=== PATIENT | female | born 2000 | race Two or more races ===

== ENCOUNTER 2023-07-26 13:41 | Emergency (ER) | payer OTHER ==
[~2023-07-26] VITALS: Ht 157.5 cm; Wt 49.4 kg
[2023-07-26] MEDS ORDERED: FOLIC ACID20 MG PO (15:28)
[2023-07-26] MEDS ORDERED: PRENA1 TRUE CO1 EACH PO (15:28)
[2023-07-26 17:21] LABS: HEMATOCRIT 34.2 % (36.0-45.00); HEMOGLOBIN 11.7 g/dL (12.0-15.00); MEAN CELL VOLUME 89.7 fL (80.00-100.00); MEAN CORPUSCULAR HEMOGLOBIN 30.8 pg (27.00-32.0); MEAN CORPUSCULAR HGB CONC 34.3 g/dl (32.0-36.0); PLATELET COUNT 295 K/uL (150-450); RED BLOOD COUNT 3.81 M/uL (4.00-6.00); RED CELL DISTRIBUTION WIDTH 13.4 % (11.5-14.5)
[2023-07-26 17:31] LABS: PH,URINE 5.5 (5.0-8.0); URINE APPEARANCE Clear; URINE BILIRRUBIN Negative (NEGATIVE); URINE BLOOD Negative; URINE COLOR Yellow; URINE GLUCOSE Negative (NEGATIVE); URINE LEUKOCYTE Negative; URINE NITRATE Negative; URINE PROTEIN Negative (NEGATIVE); URINE UROBILINOGEN 0.2 E.U./dl
[2023-07-26 17:32] LABS: URINE BACTERIA 26.4 uL (0.0-1933); URINE EPITHELIAL CELLS 10.8 uL (0.0-38.8); URINE RBC 5.7 uL (0.0-20.8)
[2023-07-26 17:39] LABS: INR 1.08; PARTIAL THROMBOPLASTIN TIME 33.8 SECONDS (22.0-34.0); PROTHROMBIN TIME 11.3 SECONDS (9.0-11.5)
[2023-07-26 18:05] LABS: CALCIUM 9.3 mg/dL (8.5-10.1); CREATININE SERUM 0.56 mg/dL (0.55-1.02); POTASSIUM 3.97 mEq/L (3.5-5.1)
[2023-07-26] MEDS ORDERED: ONDANSETRON HCL4 MG PO ×2 (22:24→22:25)
[2023-07-26] MEDS ORDERED: ONDANSETRON HCL4 MG SL (22:27)
== END 2023-07-26 22:45 | disposition home or self-care (01) ==
LOC: ER 13:42
PROVIDERS: Nurse Practitioner Family
DX: O98.819 Other maternal infectious and parasitic diseases complicating pregnancy, unspecified trimester (principal); B37.31 Acute candidiasis of vulva and vagina; R10.2 Pelvic and perineal pain; R53.81 Other malaise; Z3A.08 8 weeks gestation of pregnancy; Z88.0 Allergy status to penicillin; Z88.6 Allergy status to analgesic agent

== ENCOUNTER 2023-09-02 10:23 | Outpatient (CLI) | payer OTHER ==
[~2023-09-02 10:23] MED LIST: FOLIC ACID20 MG PO; ONDANSETRON HCL4 MG PO; ONDANSETRON HCL4 MG SL; PRENA1 TRUE CO1 EACH PO
== END 2023-09-02 10:26 | disposition home or self-care (01) ==
LOC: PRENATAL 10:23
PROVIDERS: ATTEND Obstetrics & Gynecology Maternal & Fetal Medicine
DX: O36.80X0 Pregnancy with inconclusive fetal viability, not applicable or unspecified (principal); O26.849 Uterine size-date discrepancy, unspecified trimester; Z3A.15 15 weeks gestation of pregnancy

== ENCOUNTER → 2023-10-07 16:15 | Outpatient (CLI) | payer OTHER | END | disposition home or self-care (01) | LOC: PRENATAL 16:15 | PROVIDERS: ATTEND Obstetrics & Gynecology Maternal & Fetal Medicine | DX: O35.3XX0 Maternal care for (suspected) damage to fetus from viral disease in mother, not applicable or unspecified (principal); O44.00 Complete placenta previa NOS or without hemorrhage, unspecified trimester; Z3A.20 20 weeks gestation of pregnancy ==

== ENCOUNTER → 2023-12-29 | Outpatient (CLI) | payer OTHER | END | disposition home or self-care (01) | LOC: PRENATAL 13:31 | PROVIDERS: ATTEND Obstetrics & Gynecology Maternal & Fetal Medicine | DX: O26.849 Uterine size-date discrepancy, unspecified trimester (principal); O36.8199 Decreased fetal movements, unspecified trimester, other fetus; Z3A.31 31 weeks gestation of pregnancy ==

== ENCOUNTER 2024-02-10 07:18 | Outpatient (CLI) | payer OTHER ==
[2024-02-10 06:20] VITALS: BP 116/70
[2024-02-10] MEDS ORDERED: RINGERS SOLUTION,LACTATED 1,000 ML IV SCH (08:30)
[2024-02-10 08:41] LABS: HEMATOCRIT 33.1 % (36.0-45.00); HEMOGLOBIN 11.3 g/dL (12.0-15.00); MEAN CELL VOLUME 98.5 fL (80.00-100.00); MEAN CORPUSCULAR HEMOGLOBIN 33.7 pg (27.00-32.0); MEAN CORPUSCULAR HGB CONC 34.2 g/dl (32.0-36.0); PLATELET COUNT 226 K/uL (150-450); RED BLOOD COUNT 3.36 M/uL (4.00-6.00)
[2024-02-10 08:59] LABS: URINE APPEARANCE Cloudy; URINE BILIRRUBIN Negative (NEGATIVE); URINE BLOOD Negative; URINE COLOR Yellow; URINE GLUCOSE Negative (NEGATIVE); URINE KETONE Trace (NEGATIVE); URINE LEUKOCYTE Moderate; URINE NITRATE Negative; URINE PROTEIN 30 (NEGATIVE); URINE UROBILINOGEN 0.2 E.U./dl
[2024-02-10 09:03] LABS: URINE BACTERIA 9311.1 uL (0.0-1933); URINE CAST 3.96 uL (0.0-1.40); URINE EPITHELIAL CELLS 44.8 uL (0.0-38.8); URINE RBC 32.3 uL (0.0-20.8)
[2024-02-10] MEDS ORDERED: CLEOCIN PH900 MG/6 M PO (09:17)
[2024-02-10 09:33] LABS: URINE CRYSTALS FEW /HPF; URINE YEAST FEW /hpf
== END 2024-02-10 10:16 | disposition home or self-care (01) ==
LOC: OBS/DEL 07:18
PROVIDERS: ATTEND Obstetrics & Gynecology
DX: O26.893 Other specified pregnancy related conditions, third trimester (principal); Z3A.38 38 weeks gestation of pregnancy

== ENCOUNTER 2024-02-21 05:19 | Inpatient (IN) | payer OTHER ==
[~2024-02-21] VITALS: Ht 152.4 cm; Wt 68.5 kg
[~2024-02-21 05:19] MED LIST changes: +CLEOCIN PH900 MG/6 M PO
[2024-02-21] MEDS ORDERED: RINGERS SOLUTION,LACTATED 1,000 ML IV SCH (05:30)
[2024-02-21] MEDS ORDERED: CEFAZOLIN SODIUM 1,000 MG VIAL IV ONE (05:45)
[2024-02-21 06:19] LABS: HEMATOCRIT 35.5 % (36.0-45.00); HEMOGLOBIN 12.4 g/dL (12.0-15.00); MEAN CELL VOLUME 97.8 fL (80.00-100.00); MEAN CORPUSCULAR HEMOGLOBIN 34.3 pg (27.00-32.0); MEAN CORPUSCULAR HGB CONC 35.1 g/dl (32.0-36.0); PLATELET COUNT 242 K/uL (150-450); RED BLOOD COUNT 3.63 M/uL (4.00-6.00); RED CELL DISTRIBUTION WIDTH 13.9 % (11.5-14.5)
[2024-02-21 06:22] LABS: PH,URINE 6.5 (5.0-8.0); URINE APPEARANCE Clear; URINE BILIRRUBIN Negative (NEGATIVE); URINE BLOOD Negative; URINE COLOR Yellow; URINE GLUCOSE Negative (NEGATIVE); URINE KETONE Negative (NEGATIVE); URINE LEUKOCYTE Small; URINE NITRATE Negative; URINE PROTEIN 30 (NEGATIVE); URINE UROBILINOGEN 0.2 E.U./dl
[2024-02-21 06:26] LABS: URINE EPITHELIAL CELLS 28.9 uL (0.0-38.8); URINE RBC 28.8 uL (0.0-20.8); URINE WBC 48.8 uL (0.0-23.2)
[2024-02-21 06:40] LABS: ALBUMIN 2.9 gm/dL (3.4-5.0); BILIRUBIN TOTAL 0.59 mg/dL (0.3-1.2); CALCIUM 9.2 mg/dL (8.5-10.1); CREATININE SERUM 0.53 mg/dL (0.55-1.02); GFR 141.72; GLOBULINA 3.5 G/DL (2.4-3.5); POTASSIUM 3.9 mEq/L (3.5-5.1); TOTAL PROTEIN 6.4 gm/dL (6.4-8.2)
[2024-02-21 06:44] LABS: INR 0.98; PARTIAL THROMBOPLASTIN TIME 30.1 SECONDS (22.0-34.0); PROTHROMBIN TIME 10.7 SECONDS (9.0-11.5)
[2024-02-21] MEDS ORDERED: MISOPROSTOL 25 MCG/4 ML GEL.W.APPL VAG STA (07:28)
[2024-02-21] MEDS ORDERED: MISOPROSTOL 25 MCG/4 ML GEL.W.APPL ONE (07:33)
[2024-02-21] MEDS ORDERED: OXYTOCIN 20 UNITS/500ML RL PIGGYBAG IV ONE (07:40)
[2024-02-21] MEDS ORDERED: OXYTOCIN 500 ML IV SCH (08:15)
[2024-02-21] MEDS ORDERED: MORPHINE SULFATE 4 MG/ML VIAL IV STA (12:44)
[2024-02-21] MEDS ORDERED: CEFAZOLIN SODIUM 1,000 MG VIAL IV SCH (13:00)
[2024-02-21] MEDS ORDERED: ERYTHROMYCIN BASE 1 GM TUBE OP ONE (14:50)
[2024-02-21] MEDS ORDERED: LIDOCAINE HCL 1% 10ML VIAL ONE (14:51)
[2024-02-21] MEDS ORDERED: CHLORHEXIDINE GLUCONATE 120 ML BOTTLE TOP ONE (14:51)
[2024-02-21] MEDS ORDERED: OXYTOCIN 10 UNITS/ML VIAL ONE (14:51)
[2024-02-21] MEDS ORDERED: OXYTOCIN 20 UNITS/1000ML RL PIGGYBAG IV ONE (14:51)
[2024-02-21] MEDS ORDERED: OXYTOCIN 1,000 ML IV SCH (18:15)
[2024-02-21] MEDS ORDERED: OXYTOCIN 10 UNITS/ML VIAL IM STA (18:15)
[2024-02-21] MEDS ORDERED: CHLORHEXIDINE GLUCONATE 120 ML BOTTLE TOP SCH (18:15)
[2024-02-21] MEDS ORDERED: ERYTHROMYCIN BASE 1 GM TUBE OP SCH (18:15)
[2024-02-21] MEDS ORDERED: LIDOCAINE HCL 1% 10ML VIAL PERCUT ONE (18:30)
[2024-02-21] MEDS ORDERED: ACETAMINOPHEN 500 MG GEL..CAP PO PRN (19:30)
[2024-02-21 23:27] LABS: HEMATOCRIT 35.6 % (36.0-45.00); MEAN CELL VOLUME 98.8 fL (80.00-100.00); MEAN CORPUSCULAR HEMOGLOBIN 33.2 pg (27.00-32.0); MEAN CORPUSCULAR HGB CONC 33.6 g/dl (32.0-36.0); PLATELET COUNT 248 K/uL (150-450); RED CELL DISTRIBUTION WIDTH 13.7 % (11.5-14.5)
== END 2024-02-23 15:11 | disposition home or self-care (01) | DRG 807 ==
LOC: LDR 05:19 → OB/GYN 18:19
PROVIDERS: ADMIT Obstetrics & Gynecology; ATTEND Obstetrics & Gynecology
PROC: 10E0XZZ Delivery of Products of Conception, External Approach (ICD-10-PCS; principal; 2024-02-21)
PROC: 0KQM0ZZ Repair Perineum Muscle, Open Approach (ICD-10-PCS; 2024-02-21)
PROC: 4A1HXCZ Monitoring of Products of Conception, Cardiac Rate, External Approach (ICD-10-PCS; 2024-02-21)
DX: O70.1 Second degree perineal laceration during delivery (principal); Z37.0 Single live birth; O99.824 Streptococcus B carrier state complicating childbirth; Z3A.39 39 weeks gestation of pregnancy; Z20.822 Contact with and (suspected) exposure to COVID-19

== ENCOUNTER → 2024-12-06 09:50 | Outpatient (CLI) | payer OTHER | END | disposition home or self-care (01) | LOC: PRENATAL 09:50 | PROVIDERS: ATTEND Obstetrics & Gynecology Maternal & Fetal Medicine | DX: O36.80X0 Pregnancy with inconclusive fetal viability, not applicable or unspecified (principal); Z36.82 Encounter for antenatal screening for nuchal translucency; Z3A.13 13 weeks gestation of pregnancy ==

== ENCOUNTER 2025-01-18 15:41 | Outpatient (CLI) | payer OTHER | END 2025-01-18 15:43 | disposition home or self-care (01) | LOC: PRENATAL 15:41 | PROVIDERS: ATTEND Obstetrics & Gynecology Maternal & Fetal Medicine | DX: O44.00 Complete placenta previa NOS or without hemorrhage, unspecified trimester (principal); Z3A.19 19 weeks gestation of pregnancy ==

== ENCOUNTER → 2025-02-27 | Emergency (ER) | payer OTHER ==
[~2025-02-27] VITALS: Ht 152.4 cm; Wt 57.6 kg
== END | disposition left against medical advice (07) ==
LOC: ER 21:19
DX: Z53.21 Procedure and treatment not carried out due to patient leaving prior to being seen by health care provider (principal)

== ENCOUNTER → 2025-04-16 09:54 | Outpatient (CLI) | payer OTHER | END | disposition home or self-care (01) | LOC: PRENATAL 09:54 | PROVIDERS: ATTEND Obstetrics & Gynecology Maternal & Fetal Medicine | DX: O26.849 Uterine size-date discrepancy, unspecified trimester (principal); O36.8130 Decreased fetal movements, third trimester, not applicable or unspecified; O32.9XX0 Maternal care for malpresentation of fetus, unspecified, not applicable or unspecified; Z3A.32 32 weeks gestation of pregnancy ==

== ENCOUNTER 2025-05-04 23:30 | Emergency (ER) | payer OTHER ==
[~2025-05-04] VITALS: Ht 162.6 cm; Wt 63.5 kg
[2025-05-05 02:08] LABS: BASO % 0.4 % (0.1-1.2); EOS # 0.17 (0.04-0.54); EOS % 1.4 % (0.7-7.0); LYMPH # 2.42 (1.18-3.74); LYMPH % 19.7 % (19.3-53.1); MEAN PLATELET VOLUME 10.10 fl (9.4-12.4); MONO # 1.38 (0.24-0.82); MONO % 11.3 % (4.7-12.5); NEUT # 7.75 (1.56-6.13); NEUT % 63.2 % (34.0-71.1); RED CELL DISTRIBUTION WIDTH 13.0 % (11.6-14.4)
[2025-05-05 02:17] LABS: BUN CREA RATIO 15.0 (7.0-25.0); CREATININE SERUM 0.41 mg/dL (0.55-1.02); GFR 187.52; GLUCOSE FASTING 88.0 mg/dL (65-100); OSMOLALITY SERUM 278.0 MOSM/KG (275-295)
[2025-05-05 02:55] LABS: EOSINOPHIL MAN 3.0 %; LYMPHOCYTE MAN 16.0 %; MONOCYTE MAN 12.0 %; NEUTROPHILS MAN 69.0 %
[2025-05-05 03:53] LABS: URINE APPEARANCE Cloudy; URINE BILIRRUBIN Negative (NEGATIVE); URINE BLOOD Negative; URINE COLOR Yellow; URINE GLUCOSE Negative (NEGATIVE); URINE KETONE Negative (NEGATIVE); URINE LEUKOCYTE Large; URINE NITRATE Negative; URINE PROTEIN 30 (NEGATIVE); URINE UROBILINOGEN 1.0 E.U./dl
[2025-05-05 03:57] LABS: URINE BACTERIA 7802.1 uL (0.0-1933); URINE CAST 1.90 uL (0.0-1.40); URINE EPITHELIAL CELLS 148.2 uL (0.0-38.8); URINE RBC 12.4 uL (0.0-20.8); URINE WBC 821.4 uL (0.0-23.2)
[2025-05-05 06:23] LABS: URINE CRYSTALS MANY /HPF
== END 2025-05-05 04:11 | disposition home or self-care (01) ==
LOC: ER 23:30
PROVIDERS: General Practice
DX: Z33.1 Pregnant state, incidental (principal); Z3A.36 36 weeks gestation of pregnancy; R10.20 Pelvic and perineal pain unspecified side; Z80.0 Family history of malignant neoplasm of digestive organs; Z88.6 Allergy status to analgesic agent

== ENCOUNTER 2025-05-14 10:02 | Outpatient (CLI) | payer OTHER ==
[~2025-05-14] VITALS: Ht 152.4 cm; Wt 66.2 kg
[2025-05-14 08:59] VITALS: BP 116/75
[2025-05-14] MEDS ORDERED: PRENATAL TABLE1 EAC1 PO (10:08)
[2025-05-14] MEDS ORDERED: RINGERS SOLUTION,LACTATED 1,000 ML IV SCH (10:15)
[2025-05-14 11:36] VITALS: BP 119/77
[2025-05-14 14:19] VITALS: BP 119/77
== END 2025-05-14 14:39 | disposition home or self-care (01) ==
LOC: OBS/DEL 10:02
PROVIDERS: ATTEND Obstetrics & Gynecology
DX: O36.8130 Decreased fetal movements, third trimester, not applicable or unspecified (principal); O26.843 Uterine size-date discrepancy, third trimester; O32.9XX0 Maternal care for malpresentation of fetus, unspecified, not applicable or unspecified; Z3A.36 36 weeks gestation of pregnancy

== ENCOUNTER 2025-06-01 08:48 | Inpatient (IN) | payer OTHER ==
[~2025-06-01] VITALS: Ht 152.4 cm; Wt 2.7 kg
[2025-06-01 08:46] VITALS: BP 112/70
[~2025-06-01 08:48] MED LIST changes: +PRENATAL TABLE1 EAC1 PO
[2025-06-01 09:00] VITALS: BP 112/70; O2SAT 100
[2025-06-01 11:43] LABS: BASO % 0.4 % (0.1-1.2); EOS # 0.08 (0.04-0.54); EOS % 0.7 % (0.7-7.0); LYMPH # 2.39 (1.18-3.74); LYMPH % 21.1 % (19.3-53.1); MEAN PLATELET VOLUME 10.40 fl (9.4-12.4); MONO # 0.78 (0.24-0.82); MONO % 6.9 % (4.7-12.5); NEUT # 7.73 (1.56-6.13); NEUT % 68.0 % (34.0-71.1); RED CELL DISTRIBUTION WIDTH 12.9 % (11.6-14.4)
[2025-06-01 11:44] LABS: URINE APPEARANCE Clear; URINE BILIRRUBIN Negative (NEGATIVE); URINE BLOOD Small; URINE COLOR Yellow; URINE GLUCOSE Negative (NEGATIVE); URINE KETONE Negative (NEGATIVE); URINE LEUKOCYTE Moderate; URINE NITRATE Negative; URINE PROTEIN Trace (NEGATIVE); URINE UROBILINOGEN 1.0 E.U./dl
[2025-06-01] MEDS ORDERED: CEFAZOLIN SODIUM 1,000 MG VIAL IV NR (11:45)
[2025-06-01 11:48] LABS: URINE EPITHELIAL CELLS 67.4 uL (0.0-38.8); URINE RBC 52.8 uL (0.0-20.8); URINE WBC 48.9 uL (0.0-23.2)
[2025-06-01 11:59] LABS: INR 1.03
[2025-06-01 12:01] LABS: URINE CAST 0.28 uL (0.0-1.40)
[2025-06-01] MEDS ORDERED: OXYTOCIN 10 UNITS/ML VIAL ONE ×2 (12:04→18:28)
[2025-06-01] MEDS ORDERED: ERYTHROMYCIN BASE OPHT 1GM EACH TUBE OP ONE (12:05)
[2025-06-01 12:11] LABS: ALT/SGPT 17.0 U/L (12-78); AST/SGOT 12.0 U/L (15-37); BILIRUBIN TOTAL 0.4 mg/dL (0.3-1.2); BUN CREA RATIO 19.0 (7.0-25.0); CREATININE SERUM 0.36 mg/dL (0.55-1.02); GFR 217.89; GLOBULINA 3.6 G/DL (2.4-3.5); GLUCOSE FASTING 79.0 mg/dL (65-100); OSMOLALITY SERUM 276.0 MOSM/KG (275-295)
[2025-06-01] MEDS ORDERED: MORPHINE SULFATE 4 MG/ML VIAL IV PRN ×2 (16:15→19:32)
[2025-06-01] MEDS ORDERED: DOCUSATE SODIUM 100MG CAP PO SCH (17:00)
[2025-06-01] MEDS ORDERED: GABAPENTIN 300 MG CAPSULE PO SCH (17:00)
[2025-06-01] MEDS ORDERED: OXYTOCIN 1,000 ML IV SCH (17:45)
[2025-06-01] MEDS ORDERED: RINGERS SOLUTION,LACTATED 1,000 ML IV SCH (17:45)
[2025-06-01] MEDS ORDERED: SIMETHICONE 125 MG CAPSULE PO SCH (18:00)
[2025-06-01 18:29] LABS: BASO % 0.2 % (0.1-1.2); EOS # 0.01 (0.04-0.54); EOS % 0.1 % (0.7-7.0); LYMPH # 1.35 (1.18-3.74); LYMPH % 7.1 % (19.3-53.1); MEAN PLATELET VOLUME 10.00 fl (9.4-12.4); MONO # 0.95 (0.24-0.82); MONO % 5.0 % (4.7-12.5); NEUT # 16.31 (1.56-6.13); NEUT % 86.2 % (34.0-71.1); RED CELL DISTRIBUTION WIDTH 12.7 % (11.6-14.4)
[2025-06-01 20:32] VITALS: BP 135/82
[2025-06-02] VITALS: BP 131/78
[2025-06-02 13:00] VITALS: BP 124/85
[2025-06-02 16:00] VITALS: BP 113/75
[2025-06-03] VITALS: BP 116/75
[2025-06-03 09:39] VITALS: BP 108/68
[2025-06-03 13:08] VITALS: BP 115/76
[2025-06-03 16:30] VITALS: BP 118/84
[2025-06-04 03:26] VITALS: BP 108/67
[2025-06-04 08:05] VITALS: BP 114/74
== END 2025-06-04 12:36 | disposition home or self-care (01) | DRG 785 ==
LOC: LDR 08:48 → OB/GYN 08:48 → O/R 08:48 → OB/GYN 15:01
PROVIDERS: ADMIT Obstetrics & Gynecology; ATTEND Obstetrics & Gynecology
PROC: 0UB70ZZ Excision of Bilateral Fallopian Tubes, Open Approach (ICD-10-PCS; 2025-06-01)
PROC: 4A1HXCZ Monitoring of Products of Conception, Cardiac Rate, External Approach (ICD-10-PCS; 2025-06-01)
PROC: 10D00Z1 Extraction of Products of Conception, Low, Open Approach (ICD-10-PCS; principal; 2025-06-01 15:00)
DX: O32.8XX0 Maternal care for other malpresentation of fetus, not applicable or unspecified (principal); O99.824 Streptococcus B carrier state complicating childbirth; Z30.2 Encounter for sterilization; Z3A.39 39 weeks gestation of pregnancy; Z37.0 Single live birth